=== PATIENT | female | born 1990 | race Caucasian/White ===

== ENCOUNTER 2017-04-17 17:01 | Emergency (ER) | payer BC, OTHER ==
[2017-04-17] MEDS ORDERED: Adacel Vial IM ONE ×2 (18:34→18:43)
[2017-04-17] MEDS ORDERED: BACIGUENT PACKET TP ONE (18:34)
[2017-04-17] MEDS ORDERED: MOTRIN 600 MG PO ONE (18:35)
[2017-04-17] MEDS ORDERED: MOTRIN 600 MG ONE (18:42)
[2017-04-17] MEDS ORDERED: BACIGUENT PACKET ONE (18:42)
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
[2017-04-17 19:19] VITALS: BP 123/80; PULSE 88; O2SAT 100
== END 2017-04-17 19:19 | disposition home or self-care (01) ==
LOC: ED 17:01
DX: S16.1XXA Strain of muscle, fascia and tendon at neck level, initial encounter (principal); S50.812A Abrasion of left forearm, initial encounter; V49.49XA Driver injured in collision with other motor vehicles in traffic accident, initial encounter; W22.11XA Striking against or struck by driver side automobile airbag, initial encounter
CPT/HCPCS: 90471; 90715; 99282; 99283; A9270-GY

== ENCOUNTER 2018-07-31 01:49 | Emergency (ER) | payer MEDICAID, OTHER ==
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
[2018-07-31 02:48] VITALS: BP 133/87; PULSE 86; O2SAT 98
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
== END 2018-07-31 02:52 | disposition home or self-care (01) ==
LOC: ED 01:49
DX: M25.512 Pain in left shoulder (principal); V89.2XXA Person injured in unspecified motor-vehicle accident, traffic, initial encounter; Y92.89 Other specified places as the place of occurrence of the external cause; F10.10 Alcohol abuse, uncomplicated
CPT/HCPCS: 36415; 72040; 80307; 81025; 99284; G0480

== ENCOUNTER 2020-03-21 11:36 | Observation (INO) | payer OTHER ==
--- NOTE | 2020-03-21 12:53 | XRAY ---
Indication: Normal supervision . Ultrasound biophysical profile exam was performed. There is a single viable intrauterine with heart rate 155 BPM. Four-quadrant JOSH is 16.7 cm. 2 points given for breathing, movements, tone, and qualitative amniotic fluid volume. Impression: Total biophysical profile score is 8 out of 8.
--- NOTE | 2020-03-21 12:57 | XRAY ---
Indication: growth. 2-dimensional OB ultrasound performed. Comparison: March 14, 2020. Again there is a single viable intrauterine currently in cephalic presentation. heart rate 155 BPM. The umbilical cord is again adjacent to neck. Posterior placenta without abnormal retroplacental fluid. BPD measures 9.06 cm corresponding to 36 weeks 5 days. HC measures 32.29 cm corresponding to 36 weeks 3 days. AC measures 32.96 cm corresponding to 36 weeks 6 days. FL measures 7.13 cm corresponding to 36 weeks 4 days. Estimated weight 6 pound 10 ounces, +/- 1 pound 0 ounces. Approximately 18 percentile. JOSH is 16.7 cm. Impression: Again single viable intrauterine with mean gestational age 36 weeks 5 days. There has been progression in the with the fetus measuring 16 days smaller with respect to first exam September 14, 2019. Again incidental nuchal cord.
[2020-03-21 13:09] VITALS: BP 120/62; PULSE 70; O2SAT 100
== END 2020-03-21 13:47 | disposition home or self-care (01) ==
LOC: RAD 11:36 → OB 12:45 → UNDOADMOB 12:45 → UNDODISOB 13:47
PROVIDERS: ADMIT Family Medicine; ATTEND Family Medicine
DX: Z34.03 Encounter for supervision of normal first pregnancy, third trimester (principal); Z3A.38 38 weeks gestation of pregnancy
CPT/HCPCS: 59025; 76816; 76819; G0378

== ENCOUNTER 2020-03-29 15:33 | Observation (INO) | payer OTHER ==
[2020-03-29 16:24] VITALS: BP 125/77; PULSE 96
--- NOTE | 2020-03-29 17:34 | XRAY ---
Indication: Size less than dates. Nuchal cord. 2-dimensional OB ultrasound performed. Comparison: March 27, 2020. Again there is a single viable intrauterine in cephalic presentation. heart rate 167 BPM. The umbilical cord is again adjacent to neck and now face. Previous nuchal cord not visualized. BPD measures 9.36 cm corresponding to 38 weeks 1 day. HC measures 33.07 cm corresponding to 37 weeks 5 days. AC measures 34.05 cm corresponding to 38 weeks 0 days. FL measures 7.15 cm corresponding to 36 weeks 4 days. Estimated weight 7 pound 3 ounces, +/- 1 pound 1ounce. Approximately 22 percentile. JOSH is 8.4 cm. Impression: 1. Again single viable intrauterine with mean gestational age 37 weeks 4 days. Fetus now measures 18 days smaller with respect to first exam September 14, 2019 but was only 8 days smaller on the comparison exam 2 days ago. I question the variability in the sonographers. 2. Previous nuchal cord not visualized.
== END 2020-03-29 17:00 | disposition home or self-care (01) ==
LOC: OB 15:33
PROVIDERS: ADMIT Family Medicine; ATTEND Family Medicine
DX: Z34.03 Encounter for supervision of normal first pregnancy, third trimester (principal); Z3A.40 40 weeks gestation of pregnancy
CPT/HCPCS: 59025; 76816; G0378

== ENCOUNTER 2020-03-30 16:37 | Observation (INO) | payer OTHER ==
--- NOTE | 2020-03-31 08:48 | XRAY ---
Indication: care. 2-dimensional OB ultrasound performed. Comparison: March 29, 2020. Again there is a single viable intrauterine in cephalic presentation. heart rate 165 BPM. Previous nuchal cord not visualized. Visualized stomach and bladder are unremarkable. BPD measures 9.31 cm corresponding to 37 weeks 6 days. HC measures 32.94 cm corresponding to 37 weeks 3 days. AC measures 34.02 cm corresponding to 37 weeks 6 days. FL measures 7.41 cm corresponding to 37 weeks 6 days. Estimated weight 7 pound 5 ounces, +/- 1 pound 2ounce. Approximately 25 percentile. JOSH is 12.2 cm. Impression: Again single viable intrauterine with mean gestational age 37 weeks 5 days. Fetus continues to measure 18 days smaller with respect to first exam September 14, 2019.
--- NOTE | 2020-03-31 08:50 | XRAY ---
Indication: care. Ultrasound biophysical profile study was performed. Comparison: [place] 2020. heart rate is 165 BPM. Four-quadrant JOSH is 12.2 cm. 2 points given for breathing, movements, tone, and qualitative amniotic fluid volume. Impression: Total biophysical profile score remains 8 out of 8.
== END 2020-03-30 18:04 | disposition home or self-care (01) ==
LOC: OB 16:37
PROVIDERS: ADMIT Family Medicine; ATTEND Family Medicine
DX: Z34.93 Encounter for supervision of normal pregnancy, unspecified, third trimester (principal)
CPT/HCPCS: 59025; 76816; 76818; G0378

== ENCOUNTER 2020-04-03 07:48 | Inpatient (IN) | payer OTHER ==
--- NOTE | 2020-04-03 12:56 | XRAY ---
Indication: 45 weeks gestation. Ultrasound biophysical profile study was performed. Comparison: March 30, 2020. heart rate 145 BPM. Four-quadrant JOSH is 4.6 cm, largest pocket 2.5 cm. Again incidental nuchal cord. 2 points given for breathing, movements, tone, and qualitative amniotic fluid volume. Impression: Total biophysical profile score remains 8 out of 8. Again incidental nuchal cord.
[2020-04-03] MEDS ORDERED: BRETHINE 1 MG/ML SQ PRN (13:14)
[2020-04-03] MEDS ORDERED: Lactated Ringers 1,000 ML IV ONE (13:18)
[2020-04-03] MEDS ORDERED: XYLOCAINE 1% HCL 20 ML MDV IJ PRN (17:35)
[2020-04-03] MEDS ORDERED: Zofran 4 MG/2 ML VIAL IV PRN (17:35)
[2020-04-03 17:58] LABS: Hematocrit 41.3 % (35-47); Hemoglobin 13.3 gm/dl (12.0-16.0); Mean Cell Volume 94.3 fl (78-100); Mean Corpuscular Hemoglobin 30.4 pg (26-32); Mean Corpuscular Hgb Concent. 32.2 g/dl (32-36); Mean Platelet Volume 10.1 fl (7.5-11.0); Platelet Count 197 K/mm3 (150-450); Red Blood Count 4.38 M/mm3 (4.1-5.4); Red Cell Distribution Width 14.2 % (11.5-14.0)
[2020-04-03] MEDS ORDERED: PITOCIN 30 UNITS/ LR 500 ML 30 UNITS/500 ML IV.SOLN. IV SCH (18:00)
[2020-04-03 18:31] LABS: Amphetamine,Urine NEGATIVE (NEGATIVE); Barbiturate,Urine NEGATIVE (NEGATIVE); Benzodiazepine,Urine NEGATIVE (NEGATIVE); Cocaine,Urine NEGATIVE (NEGATIVE); Methadone,Urine NEGATIVE (NEGATIVE); Opiate,Urine NEGATIVE (NEGATIVE); PCP,Urine NEGATIVE (NEGATIVE); THC,Urine NEGATIVE (NEGATIVE)
[2020-04-03] MEDS ORDERED: Cervidil 10 MG VAG SCH (20:00)
[2020-04-03 22:44] LABS: Lymphocytes 22 % (24-44); Monocyte 6 % (0.0-12.0); Neutrophils 72 % (36.0-66.0); Total Cells Counted 100
[2020-04-03 22:45] LABS: Platelet Estimate NORMAL (NORMAL)
[2020-04-04] MEDS: TYLENOL EXTRA STRENGTH 500 MG PO PRN ×2 (00:12→06:22)
[2020-04-04] MEDS: Lactated Ringers 1,000 ML IV SCH ×5 (02:32→21:50)
[2020-04-04] MEDS ORDERED: TYLENOL EXTRA STRENGTH 500 MG ONE (06:20)
[2020-04-04] MEDS ORDERED: Ephedrine Sulfate 50 MG/ML IV PRN (13:28)
[2020-04-04] MEDS ORDERED: Lactated Ringers 1,000 ML IV ONE (13:28)
[2020-04-04] MEDS: OB EPIDURAL NAROPIN/SUFENTANIL IN NACL EPIDURAL PRN (14:12)
[2020-04-05] MEDS: OB EPIDURAL NAROPIN/SUFENTANIL IN NACL EPIDURAL PRN (01:00)
[2020-04-05] MEDS: Lactated Ringers 1,000 ML IV SCH ×2 (03:55→17:30)
[2020-04-05] MEDS ORDERED: Lactated Ringers 1,000 ML IV ONE ×2 (07:17→08:36)
[2020-04-05] MEDS ORDERED: SOD CITRATE-CITRIC ACID SOLN PO ONE (07:17)
[2020-04-05] MEDS ORDERED: MORPHINE SULFATE 2 MG INJ IV PRN (07:20)
[2020-04-05] MEDS ORDERED: BENADRYL 50 MG/ML IV PRN (07:20)
[2020-04-05] MEDS ORDERED: HOLD NARCOTIC ANALGESICS AND SEDATIVES X24 HR MC PRN (07:20)
[2020-04-05] MEDS ORDERED: Narcan 0.4 MG/ML IV PRN (07:20)
[2020-04-05] MEDS ORDERED: Nubain 10 MG/ML IV PRN (07:20)
[2020-04-05] MEDS ORDERED: CLARITIN 10 MG PO PRN (07:20)
[2020-04-05] MEDS ORDERED: Sodium Chloride 0.9% 10 ML FLUSH Syringe IJ PRN (07:20)
[2020-04-05] MEDS ORDERED: Mylicon 80MG PO PRN (07:27)
[2020-04-05] MEDS ORDERED: LANSINOH 40 GM TOP PRN (07:27)
[2020-04-05] MEDS ORDERED: Reglan 10 MG/2 ML IV SCH (07:30)
[2020-04-05] MEDS ORDERED: Pepcid 20 MG VIAL IV SCH (07:30)
[2020-04-05] MEDS ORDERED: CEFAZOLIN 2 GM-D5W BAG** 2 GM/50 ML ML IV SCH (07:30)
[2020-04-05 07:51] LABS: INR 1.14 (0.8-3.0); PROTIME 12.9 SECONDS (9.95-12.35)
[2020-04-05 07:54] LABS: PTT 25.4 SECONDS (25.3-37.0)
[2020-04-05 08:16] LABS: ABO TYPING O; Antibody Screen NEGATIVE (NEGATIVE); RH TYPING POSITIVE
[2020-04-05] MEDS ORDERED: XYLOCAINE 2%/Epi 1:200000 20ML VIAL MPF ONE (08:23)
[2020-04-05] MEDS ORDERED: Pitocin 10 UNITS/ML ONE ×2 (08:36→09:10)
[2020-04-05] MEDS ORDERED: Sensorcaine 0.25% 10 ML ONE (08:46)
[2020-04-05] MEDS ORDERED: Astramorph-Pf 5 MG/10 ML ONE (08:52)
[2020-04-05] MEDS ORDERED: Versed 2 MG/2 ML Injection ONE (08:54)
[2020-04-05] MEDS ORDERED: MARCAINE 0.5%-EPI 1:200,000 VL IJ ONE (09:12)
[2020-04-05] MEDS ORDERED: Marcaine 0.5%/Epinephrine 10 ML ONE (09:12)
[2020-04-05] MEDS ORDERED: DEMEROL 50 MG ONE (09:41)
[2020-04-05] MEDS: MOTRIN 400 MG PO PRN (17:30)
[2020-04-05] MEDS: KEFZOL 1 GM/50 ML PREMIX** 1 GM/50 ML IVPB IV SCH (20:00)
[2020-04-05] MEDS: TYLENOL EXTRA STRENGTH 500 MG PO PRN (20:56)
[2020-04-05] MEDS: PERCOCET TABLET 5/325MG PO PRN (21:49)
[2020-04-06] MEDS: Lactated Ringers 1,000 ML IV SCH (02:06)
[2020-04-06] MEDS: KEFZOL 1 GM/50 ML PREMIX** 1 GM/50 ML IVPB IV SCH ×2 (03:51→07:46)
[2020-04-06] MEDS: PERCOCET TABLET 5/325MG PO PRN (04:52)
[2020-04-06] MEDS: MOTRIN 400 MG PO PRN ×3 (06:04→20:11)
[2020-04-06] MEDS: Colace 100 MG PO SCH ×3 (06:52→22:48)
[2020-04-06 07:16] LABS: Hematocrit 32.4 % (35-47); Hemoglobin 10.2 gm/dl (12.0-16.0); Mean Cell Volume 96.7 fl (78-100); Mean Corpuscular Hemoglobin 30.4 pg (26-32); Mean Corpuscular Hgb Concent. 31.5 g/dl (32-36); Mean Platelet Volume 9.5 fl (7.5-11.0); Platelet Count 152 K/mm3 (150-450); Red Blood Count 3.35 M/mm3 (4.1-5.4); Red Cell Distribution Width 14.4 % (11.5-14.0); White Blood Count 14.1 K/mm3 (4.0-10.5)
--- NOTE | 2020-04-06 07:53 | OP ---
SURGERY DATE/TIME: 04/05/2020 0847 PREOPERATIVE DIAGNOSIS: Intrauterine at 41 weeks gestation with arrest of dilatation with intrauterine growth restriction. POSTOPERATIVE DIAGNOSIS: Intrauterine at 41 weeks gestation with arrest of dilatation with intrauterine growth restriction with nuchal cord x2. PROCEDURE: Primary section, low flap transverse uterine incision, Pfannenstiel skin incision. SURGEON: Mitchel Arzola D.O. MOLD CLOSER: Aditya Bonilla, Physician Principal Programmer Student. ANESTHESIA: Epidural. ESTIMATED BLOOD LOSS: 600 cc. COMPLICATIONS: None. INDICATIONS: The risks, benefits, indications and alternatives of the procedure were reviewed with the patient prior to procedure. The patient understood the risk of infection, bleeding, bowel injury, bladder injury, ureteral injury, uterine perforation, pelvic infection and thromboembolic disorder associated with the surgery however desires to have this surgery as a possible need to alleviate her current medical condition. DESCRIPTION OF PROCEDURE AND FINDINGS: At this point the patient is taken to the operating room where her epidural anesthesia was found to adequate. She was then prepared and draped in normal sterile fashion in the dorsal supine position with a leftward tilt. A Pfannenstiel skin incision is made with a scalpel and carried through to the underlying layer of the fascia with Bovie. The fascia was then incised in the midline and the incision extended laterally with Liu scissors. The superior aspect of the fascial incision was then grasped Ricki clamps elevated and the underlying rectus muscles dissected off bluntly. Attention is then turned to the inferior aspect of this incision which in similar fashion was grasped, tented up with Ricki clamps and the rectus muscles dissected off bluntly. The rectus muscles were then at the midline and the peritoneum identified, tented up and entered sharply with Metzenbaum scissors. The peritoneal incision was then extended superiorly and inferiorly with good visualization of the bladder. The bladder blade was then inserted and the vesicouterine peritoneum identified, grasped with a pickup and entered sharply with Metzenbaum scissors. This incision was then extended laterally and bladder flap created digitally. The bladder blade was then reinserted and the lower uterine segment incised in transverse fashion with a scalpel. The uterine incision was then extended laterally with bandage scissors. The bladder blade was then removed. The 's head was delivered atraumatically and was noted to have nuchal cord x2 which was reduced. The nose and mouth were suctioned with suction bulb and the cord clamped and cut. The was then handed off to Dr. Carmelina Richards. The placenta was then removed manually. The uterus exteriorized and cleared of all clots and debris. The uterine incision was repaired with 1-0 chromic in a running locked fashion. A second layer of the same suture was used to obtain excellent hemostasis. The uterus is then returned to the abdomen. The gutters were cleared of clots and the peritoneal muscle closed in interrupted fashion using 2-0 chromic suture. The fascia was re-approximated with 0 Vicryl in running fashion. The subcutaneous layer was closed with 3-0 Vicryl and the skin was closed with absorbable judah called INSORB. The patient tolerated the procedure well. Sponge, lap, needle and instrument counts were correct x2. The patient was then taken to the recovery room in stable condition. The patient delivered a live baby girl at 0853 hours, weight of the baby was 6 pounds 6 ounces and 's were 8 at 1 minute and 9 at 5 minutes.
[2020-04-06] MEDS: NORCO 5/325 MG PO PRN ×2 (09:52→20:11)
[2020-04-06] MEDS: FERREX 150 PO SCH (09:53)
[2020-04-06 13:53] LABS: Lymphocytes 21 % (24-44); Monocyte 9 % (0.0-12.0); Neutrophils 70 % (36.0-66.0); Platelet Estimate NORMAL (NORMAL); Total Cells Counted 100
[2020-04-07] MEDS: NORCO 5/325 MG PO PRN ×3 (00:17→10:20)
[2020-04-07] MEDS: MOTRIN 400 MG PO PRN ×2 (02:52→10:21)
--- NOTE | 2020-04-07 08:36 | PCM.DS ---
Discharge Summary Date of Admission: 04/04/20 07:48 Admitting Physician: YOVANI CONTRERAS Consults: Consults on Case 04/05/20 07:17 Notify Anesthesia Provider ROUTINE 04/05/20 07:20 Notify Anesthesia Provider PRN Primary Care Provider: YOVANI CONTRERAS Allergies Allergies No Known Drug Allergies Allergy (Unverified 04/17/17 17:58) Hospital Summary - Hospital Course Hospital Course: Pt is 30 yo female who came in for post dates IOL at 39w 6d. Induction failed d/t failure to progress; also had some variable decelerations with pitocin and it had to be discontinued. Had primary with Dr. Arzola. Is recovering well, no complaints this morning. Breast and bottle feeding. Home today on [employer]. - Vitals & Intake/Output Vital Signs: Vital Signs Temperature 98.4 F 04/07/20 02:00 Pulse Rate 76 04/07/20 02:00 Respiratory Rate 20 04/07/20 02:00 Blood Pressure 125/67 04/07/20 02:00 O2 Sat by Pulse Oximetry 99 04/07/20 02:00 Intake & Output: Intake & Output 04/04/20 04/05/20 04/06/20 04/07/20 11:59 11:59 11:59 11:59 Intake Total 250 2250 2050 1999 Output Total 6898 2070 Balance 803 -7496 -6063 1999 Weight 70.76 kg 70.76 kg - Lab Result Diagrams: 04/06/20 07:00 Lab Results-Last 24 Hrs: Lab Results-Last 24 Hours 04/06/20 Range/Units 07:00 Segmented Neutrophils 70 H (36.0-66.0) % Lymphocytes (Manual) 21 L (24-44) % Monocytes (Manual) 9 (0.0-12.0) % Platelet Estimate NORMAL (NORMAL) RBC Morphology NORMAL Discharge Exam General Appearance: no apparent distress, alert Neurologic Exam: oriented x 3, cooperative Eye Exam: eyes nml inspection Ears, Nose, Throat Exam: moist mucous membranes Neck Exam: normal inspection Respiratory Exam: normal breath sounds, lungs clear, No crackles/rales, No rhonchi, No wheezing Cardiovascular Exam: regular rate/rhythm, normal heart sounds, No murmur Gastrointestinal/Abdomen Exam: soft, other (fundus firm under umbilicus. wound c/d/i) Extremity Exam: swelling (1+ LE edema bilat) Skin Exam: normal color, warm, dry, No rash Wound Assessment: Skin/Wound Assessment Wound/Incision Assessment Start: 04/05/20 22:17 Text: Status: Active Freq: Q6H Protocol: Document 04/07/20 02:00 CG (Rec: 04/07/20 02:07 CG [id number]) Wound/Incision Assessment Lower Anterior Abdomen Wound Assessment Shift Assessment Wound Type Incision Dressing Status Dry & Intact Drainage Amount None General Appearance Well Approximated,Asymptomatic ,Open to air,Clean/Dry Wound Photo Photo Taken No Comment: NONE TAKEN AT THIS TIME Final Diagnosis/Problem List - Final Discharge Diagnosis/Problem (1) delivery delivered Current Visit: Yes Status: Acute Assessment & Plan: POD #2, doing great. Home today. Code(s): O82 - ENCOUNTER FOR DELIVERY WITHOUT INDICATION (2) Anemia Current Visit: Yes Status: Acute Assessment & Plan: Iron for 1-2 mo. Code(s): D64.9 - ANEMIA, UNSPECIFIED - Discharge Disposition: Home, Self-Care Condition: Good Prescriptions: New Hydrocodone/Acetaminophen [Hydrocodone-Acetamin 5-325 mg ] 1 each PO QID PRN #28 tablet MDD 4 PRN Reason: Severe Pain Ibuprofen 600 mg PO QID PRN #35 tablet PRN Reason: Pain Continue Vits W-Ca,Fe,FA(<1Mg) [] 1 each PO DAILY Ferrous Sulfate 325 mg PO DAILY Follow up with: YOVANI CONTRERAS [Primary Care Provider] -
[2020-04-07] MEDS ORDERED: M-M-R II Vaccine With Diluent SQ ONE (10:00)
[2020-04-07] MEDS ORDERED: Adacel Vial IM ONE (10:00)
[2020-04-07] MEDS: Colace 100 MG PO SCH (10:20)
[2020-04-07] MEDS: FERREX 150 PO SCH (10:20)
[2020-04-07 11:20] VITALS: BP 115/66; PULSE 87; O2SAT 98
== END 2020-04-07 13:50 | disposition home or self-care (01) | DRG 788 ==
LOC: OB 07:48 → OBSVTOIN 04-04 07:48
PROVIDERS: ADMIT Family Medicine; ATTEND Family Medicine
PROC: 10D00Z1 Extraction of Products of Conception, Low, Open Approach (ICD-10-PCS; principal; 2020-04-05)
DX: O62.1 Secondary uterine inertia (principal); Z3A.41 41 weeks gestation of pregnancy; Z37.0 Single live birth; D64.9 Anemia, unspecified
CPT/HCPCS: 36415; 59025; 62322; 64488; 76818; 76937; 76942; 80307; 85025; 85610; 85730; 86850; 86900; 86901; 90707; 90715; 94799; 96372; G0378; J0690; J2175; J2250; J2274; J2405; J2590; J2795; L0625; A9270-GY

== ENCOUNTER 2024-12-21 06:18 | Day surgery (SDC) | payer OTHER ==
[2024-12-21] MEDS ORDERED: CEFAZOLIN SODIUM ONE (07:20)
[2024-12-21] MEDS: Lactated Ringers 1,000 ML IV SCH (07:25)
[2024-12-21 07:31] VITALS: BP 103/59; PULSE 73; RESP 16; TEMP 97.6; O2SAT 100
[2024-12-21 07:37] LABS: HCG URINE TEST POSITIVE (NEGATIVE)
== END 2024-12-21 07:50 | disposition home or self-care (01) ==
LOC: SDC 06:18
PROVIDERS: ATTEND Obstetrics & Gynecology
DX: Z53.8 Procedure and treatment not carried out for other reasons (principal); Z32.01 Encounter for pregnancy test, result positive